=== PATIENT | male | born 1960 ===

== ENCOUNTER 2022-08-22 05:11 | Day surgery (SDC) | payer OTHER ==
[~2022-08-22] VITALS: Ht 170.2 cm; Wt 64.4 kg
== END 2022-08-22 17:30 | disposition home or self-care (01) ==
LOC: CIR.AMB 05:11
PROVIDERS: ATTEND Urology
DX: D40.8 Neoplasm of uncertain behavior of other specified male genital organs (principal); Z86.16 Personal history of COVID-19; Z20.822 Contact with and (suspected) exposure to COVID-19